=== PATIENT | male | born 1965 | race American Indian/Alaskan Native ===

== ENCOUNTER 2020-10-24 09:15 | Emergency (ER) | payer OTHER ==
[~2020-10-24] VITALS: Ht 182.9 cm; Wt 109.1 kg
[~2020-10-24 09:15] MED LIST: NOCURR
[2020-10-24 09:17] VITALS: BP_DIAS 93
[2020-10-24] MEDS ORDERED: HYDROCODONE/ACETAMINOPHEN 5-325 MG TABLET PO ONE (12:00)
[2020-10-24] MEDS ORDERED: IBUPROFEN 600 MG TABLET PO ONE (12:00)
[2020-10-24 12:43] VITALS: BP_SYST 143
== END 2020-10-24 12:52 | disposition home or self-care (01) ==
LOC: EMS 09:19
DX: S93.402A Sprain of unspecified ligament of left ankle, initial encounter (principal); S90.122A Contusion of left lesser toe(s) without damage to nail, initial encounter; F17.210 Nicotine dependence, cigarettes, uncomplicated; X50.1XXA Overexertion from prolonged static or awkward postures, initial encounter; Y93.89 Activity, other specified; Y92.89 Other specified places as the place of occurrence of the external cause; Y99.8 Other external cause status
CPT/HCPCS: 29515; 29540; 99284

== ENCOUNTER 2022-05-07 13:12 | Emergency (ER) | payer OTHER ==
[~2022-05-07] VITALS: Ht 182.9 cm; Wt 113.6 kg
[2022-05-07] MEDS ORDERED: MORPHINE SULFATE 2 MG/ML SYRINGE IVP ONE ×2 (13:45→15:45)
[2022-05-07 14:10] LABS: BASOPHILS % (AUTO) 0.6 % (0.0-2.0); EOSINOPHILS % (AUTO) 1.3 % (1.0-6.0); HEMATOCRIT 40.8 % (41-53); HEMOGLOBIN 13.7 g/dL (13.5-17.5); LYMPHOCYTES # (AUTO) 1.3 K/uL (1.0-4.8); LYMPHOCYTES % (AUTO) 15.5 % (22.0-44.0); MEAN CORPUSCULAR HEMOGLOBIN 31.5 pg (26.0-34.0); MEAN CORPUSCULAR HGB CONC 33.4 G/dL (31.0-37.0); MEAN CORPUSCULAR VOLUME 94 fL (80-100); MONOCYTES # (AUTO) 0.4 K/uL (0.1-1.0); MONOCYTES % (AUTO) 4.5 % (2.0-9.0); NEUTROPHILS # (AUTO) 6.5 K/uL (1.8-7.7); NEUTROPHILS % (AUTO) 78.1 % (40.0-70.0); PLATELET COUNT (AUTO) 217 K/uL (150-450); RED BLOOD CELL COUNT(AUTO) 4.33 MIL/uL (4.50-5.90); RED CELL DISTRIBUTION WIDTH 13.7 % (11.5-14.5)
[2022-05-07 14:17] LABS: ANION GAP 13 mmol/L (8-16); CALCIUM, TOTAL 8.8 mg/dL (8.8-10.5); CARBON DIOXIDE 23 mmol/L (22-29); CHLORIDE 107 mmol/L (98-107); CREATININE 0.94 mg/dL (0.60-1.30); GLOMERULAR FILTR. RATE CALC > 60 mL/min (>60); GLUCOSE,RANDOM 111 mg/dL (70-110); SODIUM SERUM 143 mmol/L (136-145); UREA NITROGEN, BLOOD 12 mg/dL (7-18)
[2022-05-07 14:23] LABS: ALANINE AMINOTRANSFERASE 39 U/L (12-78); ALBUMIN 3.5 g/dL (3.4-5.0); ALKALINE PHOSPHATASE 89 U/L (46-116); ASPARTATE AMINOTRANSFERASE 29 U/L (15-37); BILIRUBIN,TOTAL 0.3 mg/dL (0.1-1.0); LIPASE 72 U/L (73-393); TOTAL PROTEIN, SERUM 7.1 g/dL (6.4-8.2)
[2022-05-07] MEDS ORDERED: IOHEXOL 350 MG/ML 100 ML VIAL ONE ×2 (14:39→14:40)
[2022-05-07] MEDS ORDERED: SODIUM CHLORIDE 0.9% 100 ML ONE (14:40)
[2022-05-07 16:18] LABS: AMPHET/METH SCREEN,URINE NEGATIVE (NEGATIVE); BARBITURATE SCREEN, URINE NEGATIVE (NEGATIVE); BENZODIAZEPINES SCREEN,URINE NEGATIVE (NEGATIVE); CANNABINOID SCREEN,URINE POSITIVE (NEGATIVE); COCAINE SCREEN,URINE NEGATIVE (NEGATIVE); METHADONE SCREEN, URINE NEGATIVE (NEGATIVE); OPIATE SCREEN,URINE POSITIVE (NEGATIVE)
[2022-05-07 16:19] LABS: PHENCYCLIDINE SCREEN,URINE NEGATIVE (NEGATIVE)
[2022-05-07 16:36] VITALS: BP 138/85
[2022-05-07] MEDS ORDERED: IBUP-2070 PO (16:39)
== END 2022-05-07 17:12 | disposition home or self-care (01) ==
LOC: EMS 13:15
DX: M54.50 Low back pain, unspecified (principal); F10.20 Alcohol dependence, uncomplicated; F17.210 Nicotine dependence, cigarettes, uncomplicated; W14.XXXA Fall from tree, initial encounter; Y93.89 Activity, other specified; Y92.89 Other specified places as the place of occurrence of the external cause; Y99.8 Other external cause status
CPT/HCPCS: 99285; 70450; 96374; 80053; 83690; 85025; 36415; 71260; 72125; 72131; 74160; 96376; 80307; 72193; G0480; J2270; Q9967; J7050

== ENCOUNTER 2022-09-07 13:44 | Emergency (ER) | payer OTHER ==
[~2022-09-07 13:44] MED LIST changes: +IBUP-1492 PO
== END 2022-09-07 15:52 | disposition left against medical advice (07) ==
LOC: EMS 13:48
DX: M54.9 Dorsalgia, unspecified (principal); R51.9 Headache, unspecified; Z53.21 Procedure and treatment not carried out due to patient leaving prior to being seen by health care provider

== ENCOUNTER → 2024-11-09 | Emergency (ER) | payer OTHER ==
[~2024-11-09] VITALS: Ht 182.9 cm; Wt 122.7 kg
[~2024-11-09] MED LIST changes: +KETO10TA2 PO; -NOCURR
[2024-11-09 07:41] VITALS: TEMP 98.2
[2024-11-09] MEDS: KETOROLAC TROMETHAMINE 30 MG/ML VIAL IM ONE (08:59)
[2024-11-09 09:25] VITALS: BP 130/76; PULSE 88; RESP 18; O2SAT 100
== END | disposition home or self-care (01) ==
LOC: EMS 07:39
DX: S83.92XA Sprain of unspecified site of left knee, initial encounter (principal); F17.210 Nicotine dependence, cigarettes, uncomplicated; X58.XXXA Exposure to other specified factors, initial encounter; Y93.89 Activity, other specified; Y92.89 Other specified places as the place of occurrence of the external cause; Y99.8 Other external cause status
CPT/HCPCS: 99283; 73562; 96372; J1885

== ENCOUNTER 2025-01-13 10:27 | Emergency (ER) | payer OTHER ==
[~2025-01-13] VITALS: Ht 182.9 cm; Wt 100.0 kg
[2025-01-13 10:33] VITALS: BP 170/92; PULSE 82; RESP 18; TEMP 98.4; O2SAT 98
[2025-01-13] MEDS: KETOROLAC TROMETHAMINE 60 MG/2 ML VIAL IM ONE (11:22)
[2025-01-13] MEDS: OxyCODONE HCL/ACETAMINOPHEN 5-325 MG TABLET PO ONE (11:22)
[2025-01-13] MEDS ORDERED: PERCT PO (12:02)
[2025-01-13] MEDS ORDERED: IBUP-1492 PO (12:02)
== END 2025-01-13 12:14 | disposition home or self-care (01) ==
LOC: EMS 10:27
DX: M25.572 Pain in left ankle and joints of left foot (principal); F17.210 Nicotine dependence, cigarettes, uncomplicated; F10.90 Alcohol use, unspecified, uncomplicated; Z79.899 Other long term (current) drug therapy; Y90.9 Presence of alcohol in blood, level not specified
CPT/HCPCS: 99283; 73610; 96372; J1885

== ENCOUNTER 2025-04-10 00:53 | Emergency (ER) | payer OTHER ==
[~2025-04-10] VITALS: Ht 182.9 cm; Wt 120.5 kg
[~2025-04-10 00:53] MED LIST changes: -KETO10TA2 PO; +PERCT PO
[2025-04-10 04:30] VITALS: BP 156/89; PULSE 87; RESP 16; TEMP 98.105288; O2SAT 98
[2025-04-10] MEDS ORDERED: IBUP-1492 PO (05:20)
[2025-04-10] MEDS ORDERED: METH-812 PO (05:20)
[2025-04-10] MEDS: DEXAMETHASONE SOD PHOS 4 MG/ML 5 ML VIAL IM ONE (05:26)
[2025-04-10] MEDS: KETOROLAC TROMETHAMINE 30 MG/ML VIAL IM ONE (05:27)
== END 2025-04-10 05:30 | disposition home or self-care (01) ==
LOC: EMS 00:53
DX: M54.10 Radiculopathy, site unspecified (principal); F17.210 Nicotine dependence, cigarettes, uncomplicated; F10.90 Alcohol use, unspecified, uncomplicated; Z98.890 Other specified postprocedural states; Z79.899 Other long term (current) drug therapy; Y90.9 Presence of alcohol in blood, level not specified
CPT/HCPCS: 99284; 73030; 73070; 96372; J1885; J1100